=== PATIENT | female | born 1935 | race Two or more races ===

== ENCOUNTER 2025-06-25 00:03 | Inpatient (IN) | payer MEDICARE, OTHER ==
[2025-06-25] VITALS (7 sets, daily range): BP systolic 127–168; BP diastolic 50–70; TEMP 97.1–98.4; O2SAT 96–98
[~2025-06-25] VITALS: Ht 157.5 cm; Wt 73.9 kg
[2025-06-25 01:08] LABS: PLATELET COUNT (AUTO) 563 K/uL (150-450); RED BLOOD CELL COUNT(AUTO) 2.23 MIL/uL (4.0-5.2); RED CELL DISTRIBUTION WIDTH 19.0 % (11.5-15.0); WHITE BLOOD COUNT (AUTO) 9.6 K/uL (4.3-11.0)
[2025-06-25 01:30] LABS: CALCIUM, SERUM 8.5 mg/dL (8.5-10.1); CREATININE 1.4 mg/dL (0.6-1.3); SODIUM SERUM 131.0 mmol/L (136-145); UREA NITROGEN, BLOOD 60.0 mg/dL (7-18)
[2025-06-25 01:34] LABS: INR 1.18 (0.91-1.10)
[2025-06-25 01:48] LABS: ASPARTATE AMINOTRANSFERASE 35.0 U/L (15-37); TOTAL PROTEIN, SERUM 7.2 g/dL (6.4-8.2)
[2025-06-25] MEDS ORDERED: MAGNESIUM HYDROXIDE 30 ML UDC PO PRN (02:00)
[2025-06-25] MEDS ORDERED: Z GUARD REMEDY 4 OZ OINT TP PRN (02:00)
[2025-06-25] MEDS ORDERED: ONDANSETRON HCL/PF 4 MG/2 ML VIAL IVP PRN (02:00)
[2025-06-25] MEDS ORDERED: MAG HYDROX/AL HYDROX/SIMETH 30 ML UDC PO PRN (02:00)
[2025-06-25 02:04] LABS: BASOPHILS % (MANUAL) 0 % (0.0-2.0); EOSINOPHILS % (MANUAL) 0 % (0-4); LYMPHOCYTES % (MANUAL) 6 % (16-48); MONOCYTES % (MANUAL) 18 % (0-11.0); NEUTROPHILS % (MANUAL) 76 (42-76); PLATELET ESTIMATE ADEQUATE
[2025-06-25] MEDS: IV NS 0.9% 1,000 ML BAG IV ONE (02:37)
[2025-06-25] MEDS: hydrALAZINE HCL IV 20 MG VIAL IV PRN (06:56)
[2025-06-25] MEDS: PANTOPRAZOLE 40 MG TABLET.DR PO SCH (09:00)
[2025-06-25] MEDS ORDERED: ACET-868 GT (09:21)
[2025-06-25] MEDS ORDERED: LACT1CAP69 GT (09:21)
[2025-06-25] MEDS ORDERED: IPRA3AMP23 IH (09:21)
[2025-06-25] MEDS ORDERED: MULT-213 GT (09:21)
[2025-06-25] MEDS ORDERED: ASPI-1169 GT (09:21)
[2025-06-25] MEDS ORDERED: LACT-96 GT (09:21)
[2025-06-25] MEDS ORDERED: BISA10SU11 RC (09:21)
[2025-06-25] MEDS ORDERED: APIX2.5T GT (09:21)
[2025-06-25] MEDS ORDERED: LOSA50TA39 GT (09:21)
[2025-06-25] MEDS ORDERED: NA P133E RC (09:21)
[2025-06-25] MEDS ORDERED: HYDR100T27 GT (09:21)
[2025-06-25] MEDS ORDERED: LEVO25TA7 GT (09:21)
[2025-06-25] MEDS ORDERED: METO50TA16 GT (09:21)
[2025-06-25] MEDS ORDERED: DIGO0.12 GT (09:21)
[2025-06-25] MEDS ORDERED: ATOR80TA GT (09:21)
[2025-06-25] MEDS ORDERED: PANT40SU2 GT (09:21)
[2025-06-25] MEDS ORDERED: CLON0.1T GT (09:21)
[2025-06-25] MEDS ORDERED: SODI325T GT (09:21)
[2025-06-25] MEDS ORDERED: DILT30TA14 GT (09:21)
[2025-06-25] MEDS ORDERED: NUTR1PAC14 GT (09:21)
[2025-06-25 10:37] LABS: PLATELET COUNT (AUTO) 511 K/uL (150-450); RED BLOOD CELL COUNT(AUTO) 2.62 MIL/uL (4.0-5.2); RED CELL DISTRIBUTION WIDTH 17.7 % (11.5-15.0); WHITE BLOOD COUNT (AUTO) 10.4 K/uL (4.3-11.0)
[2025-06-25 10:41] LABS: CALCIUM, SERUM 8.3 mg/dL (8.5-10.1); CREATININE 1.5 mg/dL (0.6-1.3); SODIUM SERUM 131.0 mmol/L (136-145); UREA NITROGEN, BLOOD 59.0 mg/dL (7-18)
[2025-06-25] MEDS: THERAHONEY GEL 1.5 OZ TUBE TP SCH (10:52)
[2025-06-25 11:57] LABS: LYMPHOCYTES % (MANUAL) 4 % (16-48); MONOCYTES % (MANUAL) 12 % (0-11.0); NEUTROPHILS % (MANUAL) 84 (42-76)
[2025-06-25 11:58] LABS: PLATELET ESTIMATE INCREASED
[2025-06-25] MEDS ORDERED: JEVITY 1.5 CAL LIQUID 1,000 ML BOTTLE GT PRN (12:00)
[2025-06-25] MEDS: JEVITY 1.2 CAL 1,000 ML BOTTLE GT SCH (15:55)
[2025-06-25] MEDS: IV NS 0.9% 1,000 ML IV PRN (18:20)
[2025-06-26 01:13] VITALS: BP 178/102
[2025-06-26 02:33] VITALS: BP 141/100
[2025-06-26 07:11] LABS: PLATELET COUNT (AUTO) 487 K/uL (150-450); RED BLOOD CELL COUNT(AUTO) 3.21 MIL/uL (4.0-5.2); RED CELL DISTRIBUTION WIDTH 17.0 % (11.5-15.0); WHITE BLOOD COUNT (AUTO) 9.3 K/uL (4.3-11.0)
[2025-06-26 07:32] LABS: LDL 69.0 mg/dL (0-99)
[2025-06-26 07:43] LABS: CALCIUM, SERUM 8.2 mg/dL (8.5-10.1); CREATININE 1.3 mg/dL (0.6-1.3); PHOSPHORUS 3.6 mg/dL (2.5-4.9); SODIUM SERUM 133.0 mmol/L (136-145); UREA NITROGEN, BLOOD 48.0 mg/dL (7-18)
[2025-06-26 08:00] VITALS: BP 142/90; TEMP 98.2; O2SAT 100
[2025-06-26 08:15] LABS: LYMPHOCYTES % (MANUAL) 6 % (16-48); MONOCYTES % (MANUAL) 13 % (0-11.0); NEUTROPHILS % (MANUAL) 81 (42-76)
[2025-06-26 08:16] LABS: PLATELET ESTIMATE INCREASED
[2025-06-26] MEDS ORDERED: SODIUM BICARBONATE 325 MG TABLET GT SCH (09:30)
[2025-06-26] MEDS ORDERED: ASPIRIN 81 MG TAB.CHEW GT SCH (09:30)
[2025-06-26] MEDS: LOSARTAN POTASSIUM 50 MG TABLET GT SCH (10:36)
[2025-06-26] MEDS: DILTIAZEM HCL 30 MG TABLET GT SCH (10:36)
[2025-06-26] MEDS: CLONIDINE HCL 0.1 MG TABLET GT SCH (10:36)
[2025-06-26] MEDS: LACTOBACILLUS RHAMNOSUS GG 1 EACH CAP.SPRINK PO SCH (10:36)
[2025-06-26] MEDS: PROSOURCE / PROSTAT (PYXIS) 30 ML UDC GT SCH (10:37)
[2025-06-26] MEDS: LEVOTHYROXINE SODIUM 25 MCG TABLET GT SCH (10:37)
[2025-06-26] MEDS: METOPROLOL TARTRATE 50 MG TABLET GT SCH (10:38)
[2025-06-26] MEDS: ARGININE/GLUTAMINE/CALCIUM BMB 1 EACH POWD.PACK GT SCH (10:38)
[2025-06-26] MEDS: PANTOPRAZOLE 40 MG/PACK PACK GT SCH (10:39)
[2025-06-26] MEDS: DIGOXIN ELIX UDC 0.25 MG/5 ML UDC GT SCH (13:00)
[2025-06-26 16:00] VITALS: BP 134/79; TEMP 97.9; O2SAT 96
[2025-06-26] MEDS ORDERED: APIXABAN 2.5 MG TABLET GT SCH (17:00)
[2025-06-26 20:00] VITALS: BP 113/98; TEMP 97.3; O2SAT 99
[2025-06-26] MEDS: ATORVASTATIN 40 MG TABLET GT SCH (21:34)
[2025-06-26 21:45] LABS: OCCULT BLOOD STOOL POSITIVE (NEGATIVE)
[2025-06-27 04:00] VITALS: BP 153/75; TEMP 97.5; O2SAT 98
[2025-06-27 06:58] LABS: PLATELET COUNT (AUTO) 478 K/uL (150-450); RED BLOOD CELL COUNT(AUTO) 3.10 MIL/uL (4.0-5.2); RED CELL DISTRIBUTION WIDTH 17.7 % (11.5-15.0); WHITE BLOOD COUNT (AUTO) 12.1 K/uL (4.3-11.0)
[2025-06-27 08:00] VITALS: BP 134/79; TEMP 97.9; O2SAT 96
[2025-06-27 08:02] LABS: CALCIUM, SERUM 8.1 mg/dL (8.5-10.1); CREATININE 1.1 mg/dL (0.6-1.3); SODIUM SERUM 136.0 mmol/L (136-145); UREA NITROGEN, BLOOD 47.0 mg/dL (7-18)
[2025-06-27 08:17] LABS: PHOSPHORUS 3.5 mg/dL (2.5-4.9)
[2025-06-27 09:23] LABS: LYMPHOCYTES % (MANUAL) 4 % (16-48); MONOCYTES % (MANUAL) 15 % (0-11.0); NEUTROPHILS % (MANUAL) 81 (42-76)
[2025-06-27 09:24] LABS: PLATELET ESTIMATE INCREASED
[2025-06-27] MEDS: LEVOTHYROXINE SODIUM 25 MCG TABLET GT SCH (09:26)
[2025-06-27] MEDS: MULTIVIT W/MINERALS 1 TAB TABLET PO SCH (09:26)
[2025-06-27] MEDS: SODIUM BICARBONATE 650 MG TABLET GT SCH (09:27)
[2025-06-27 16:00] VITALS: BP 152/55; TEMP 97.3; O2SAT 99
[2025-06-27 20:00] VITALS: BP 137/65; TEMP 97.3; O2SAT 100
[2025-06-28] VITALS (9 sets, daily range): BP systolic 119–169; BP diastolic 46–78; TEMP 97–98.1; O2SAT 94–99
[2025-06-28 07:07] LABS: PLATELET COUNT (AUTO) 525 K/uL (150-450); RED BLOOD CELL COUNT(AUTO) 3.23 MIL/uL (4.0-5.2); RED CELL DISTRIBUTION WIDTH 17.6 % (11.5-15.0); WHITE BLOOD COUNT (AUTO) 12.0 K/uL (4.3-11.0)
[2025-06-28 07:41] LABS: CALCIUM, SERUM 8.4 mg/dL (8.5-10.1); CREATININE 1.1 mg/dL (0.6-1.3); SODIUM SERUM 136.0 mmol/L (136-145); UREA NITROGEN, BLOOD 47.0 mg/dL (7-18)
[2025-06-28 08:02] LABS: PHOSPHORUS 2.9 mg/dL (2.5-4.9)
[2025-06-28 09:32] LABS: LYMPHOCYTES % (MANUAL) 5 % (16-48); MONOCYTES % (MANUAL) 15 % (0-11.0); NEUTROPHILS % (MANUAL) 80 (42-76); PLATELET ESTIMATE INCREASED
[2025-06-28 11:18] LABS: ABG BASE EXCESS 0.1 mmol/L (-2.0-3.0); ABG OXYGEN SATURATION 98.6 % (94.0-98.0); ABG PCO2 50.9 mmHg (32.0-45.0); ABG PH 7.333 (7.350-7.450); ABG PO2 130.2 mmHg (83.0-108.0); ABG TOTAL HEMOGLOBIN 9.7 G/dL (12.0-16.0); SITE, ABG RIGHT RADIAL
[2025-06-28] MEDS: IPRATROPIUM NEB FS 0.5 MG/2.5 ML AMPUL.NEB NEB SCH (13:01)
[2025-06-28] MEDS: PEG 3350/NA SULF,BICARB,CL/KCL 4,000 ML BOTTLE PO ONE (14:45)
[2025-06-28] MEDS: FUROSEMIDE 100 MG/10 ML VIAL IV SCH (16:33)
[2025-06-28 17:00] LABS: IRON, SERUM 13.0 ug/dl (50-175)
[2025-06-28] MEDS ORDERED: FUROSEMIDE 40 MG/4 ML VIAL IV SCH (20:00)
[2025-06-29] VITALS (14 sets, daily range): BP systolic 100–167; BP diastolic 50–80; TEMP 97.1–98; O2SAT 95–100
[2025-06-29 07:03] LABS: PLATELET COUNT (AUTO) 476 K/uL (150-450); RED BLOOD CELL COUNT(AUTO) 3.13 MIL/uL (4.0-5.2); RED CELL DISTRIBUTION WIDTH 18.5 % (11.5-15.0); WHITE BLOOD COUNT (AUTO) 11.5 K/uL (4.3-11.0)
[2025-06-29 07:08] LABS: CALCIUM, SERUM 8.3 mg/dL (8.5-10.1); CREATININE 1.0 mg/dL (0.6-1.3); SODIUM SERUM 139.0 mmol/L (136-145); UREA NITROGEN, BLOOD 49.0 mg/dL (7-18)
[2025-06-29 07:13] LABS: PHOSPHORUS 2.4 mg/dL (2.5-4.9)
[2025-06-29 09:36] LABS: LYMPHOCYTES % (MANUAL) 3 % (16-48); MONOCYTES % (MANUAL) 15 % (0-11.0); NEUTROPHILS % (MANUAL) 82 (42-76); PLATELET ESTIMATE INCREASED
[2025-06-29] MEDS: SOD FERRIC GLUC 125 MG in IV NS 0.9% 100 ML IV SCH (14:51)
[2025-06-29] MEDS: K PHOS NEUTRAL 250 MG TABLET PO ONE (16:12)
[2025-06-29] MEDS: ACETAMINOPHEN 325 MG TABLET PO PRN (18:32)
[2025-06-30] VITALS (13 sets, daily range): BP systolic 124–182; BP diastolic 50–124; TEMP 97.2–98.7; O2SAT 94–99
[2025-06-30] MEDS: IV D5/ 0.9% NACL 1,000 ML IV ONE (06:57)
[2025-06-30] MEDS ORDERED: DOSING PER PHARMACY-CEFEPIME IVPB XX PRN (10:00)
[2025-06-30] MEDS: CEFEPIME 2 GM in IV D5W 100 ML IV SCH (11:28)
[2025-06-30] MEDS ORDERED: ANESTHESIA TRAY IN PYXIS 1 EA TRAY MC ONE (13:55)
[2025-07-01] VITALS (16 sets, daily range): BP systolic 97–180; BP diastolic 43–88; TEMP 97.3–97.9; O2SAT 96–99
[2025-07-01 07:12] LABS: PLATELET COUNT (AUTO) 460 K/uL (150-450); RED BLOOD CELL COUNT(AUTO) 3.31 MIL/uL (4.0-5.2); RED CELL DISTRIBUTION WIDTH 17.7 % (11.5-15.0); WHITE BLOOD COUNT (AUTO) 12.5 K/uL (4.3-11.0)
[2025-07-01 07:38] LABS: BASOPHILS % (MANUAL) 0 % (0.0-2.0); EOSINOPHILS % (MANUAL) 0 % (0-4); LYMPHOCYTES % (MANUAL) 6 % (16-48); MONOCYTES % (MANUAL) 16 % (0-11.0); NEUTROPHILS % (MANUAL) 78 (42-76); PLATELET ESTIMATE ADEQUATE
[2025-07-01 07:42] LABS: CALCIUM, SERUM 8.0 mg/dL (8.5-10.1); CREATININE 0.9 mg/dL (0.6-1.3); PHOSPHORUS 2.6 mg/dL (2.5-4.9); SODIUM SERUM 140.0 mmol/L (136-145); UREA NITROGEN, BLOOD 32.0 mg/dL (7-18)
[2025-07-01] MEDS: POTASSIUM CHLORIDE 20 MEQ POWDER PACKET GT SCH (11:42)
[2025-07-01] MEDS: MAGNESIUM OXIDE 400 MG TABLET GT ONE (11:43)
[2025-07-01 17:22] LABS: WBC, BODY FLUID 931 /cu. mm. (0-200)
[2025-07-01 17:35] LABS: TOTAL VOLUME,BODY FLUID 600 mL
[2025-07-01 17:40] LABS: APPEARANCE,SPUN,BODY FLUID CLEAR (CLEAR)
[2025-07-01 18:00] LABS: PROTEIN, BODY FLUID 2.6 G/DL
[2025-07-01 19:00] LABS: MACROPHAGES, BODY FLUID 15
[2025-07-02] VITALS (11 sets, daily range): BP systolic 105–135; BP diastolic 40–56; TEMP 97.3–97.8; O2SAT 95–99
[2025-07-02 07:19] LABS: PLATELET COUNT (AUTO) 398 K/uL (150-450); RED BLOOD CELL COUNT(AUTO) 3.09 MIL/uL (4.0-5.2); RED CELL DISTRIBUTION WIDTH 18.0 % (11.5-15.0); WHITE BLOOD COUNT (AUTO) 11.9 K/uL (4.3-11.0)
[2025-07-02 08:02] LABS: CALCIUM, SERUM 8.0 mg/dL (8.5-10.1); CREATININE 1.2 mg/dL (0.6-1.3); SODIUM SERUM 141.0 mmol/L (136-145); UREA NITROGEN, BLOOD 45.0 mg/dL (7-18)
[2025-07-02 08:35] LABS: PLATELET ESTIMATE ADEQUATE
[2025-07-02 08:36] LABS: LYMPHOCYTES % (MANUAL) 5 % (16-48); MONOCYTES % (MANUAL) 19 % (0-11.0); NEUTROPHILS % (MANUAL) 76 (42-76)
[2025-07-02] MEDS ORDERED: CEFE2FRO IV (10:00)
[2025-07-02] MEDS ORDERED: SOD62.5V IV (10:00)
[2025-07-02] MEDS: MAGNESIUM OXIDE 400 MG TABLET PO ONE (12:27)
[2025-07-02] MEDS ORDERED: FERR325T28 GT (14:23)
== END 2025-07-02 15:20 | DRG 981 ==
LOC: ER 00:05 → EDBD 00:05 → TELE1 03:10 → MEDSG1 09:45 → TELE1 06-28 11:52
PROVIDERS: ADMIT Nurse Practitioner Acute Care; ATTEND Nurse Practitioner Family
PROC: 30233N1 Transfusion of Nonautologous Red Blood Cells into Peripheral Vein, Percutaneous Approach (ICD-10-PCS; principal; 2025-06-25)
PROC: 0KBN0ZZ Excision of Right Hip Muscle, Open Approach (ICD-10-PCS; 2025-06-30)
PROC: 0KBP0ZZ Excision of Left Hip Muscle, Open Approach (ICD-10-PCS; 2025-06-30)
PROC: 0DJD8ZZ Inspection of Lower Intestinal Tract, Via Natural or Artificial Opening Endoscopic (ICD-10-PCS; 2025-06-30)
PROC: 0W9B3ZZ Drainage of Left Pleural Cavity, Percutaneous Approach (ICD-10-PCS; 2025-07-01)
DX: D64.9 Anemia, unspecified (principal); L89.154 Pressure ulcer of sacral region, stage 4; E87.1 Hypo-osmolality and hyponatremia; I70.268 Atherosclerosis of native arteries of extremities with gangrene, other extremity; E44.0 Moderate protein-calorie malnutrition; L97.419 Non-pressure chronic ulcer of right heel and midfoot with unspecified severity; I13.0 Hypertensive heart and chronic kidney disease with heart failure and stage 1 through stage 4 chronic kidney disease, or unspecified chronic kidney disease; I50.32 Chronic diastolic (congestive) heart failure; N17.9 Acute kidney failure, unspecified; E87.29 Other acidosis; E78.5 Hyperlipidemia, unspecified; I69.320 Aphasia following cerebral infarction; I70.201 Unspecified atherosclerosis of native arteries of extremities, right leg; L98.494 Non-pressure chronic ulcer of skin of other sites with necrosis of bone; K64.8 Other hemorrhoids; I48.91 Unspecified atrial fibrillation; R13.10 Dysphagia, unspecified; I27.20 Pulmonary hypertension, unspecified; F20.9 Schizophrenia, unspecified; I69.391 Dysphagia following cerebral infarction; Z93.1 Gastrostomy status; Z88.1 Allergy status to other antibiotic agents; Z87.891 Personal history of nicotine dependence; Z79.01 Long term (current) use of anticoagulants; N18.9 Chronic kidney disease, unspecified; F03.C0 Unspecified dementia, severe, without behavioral disturbance, psychotic disturbance, mood disturbance, and anxiety; E88.09 Other disorders of plasma-protein metabolism, not elsewhere classified; E87.5 Hyperkalemia; E86.0 Dehydration; E03.9 Hypothyroidism, unspecified; E87.6 Hypokalemia; E66.9 Obesity, unspecified; Z68.29 Body mass index [BMI] 29.0-29.9, adult; E61.1 Iron deficiency; S80.211A Abrasion, right knee, initial encounter; X58.XXXA Exposure to other specified factors, initial encounter; Y92.9 Unspecified place or not applicable; Z79.890 Hormone replacement therapy; Z79.51 Long term (current) use of inhaled steroids; Z79.899 Other long term (current) drug therapy; Z79.82 Long term (current) use of aspirin; F09 Unspecified mental disorder due to known physiological condition; E53.8 Deficiency of other specified B group vitamins; F41.9 Anxiety disorder, unspecified; K56.41 Fecal impaction
CPT/HCPCS: 36415; 71045-TC; 71250-TC; 80048-TC; 80061-TC; 80076-TC; 82272-TC; 82728-TC; 82803-TC; 82962-TC; 83540-TC; 83735-TC; 84100-TC; 84439-TC; 84443-TC; 84550-TC; 85027-TC; 85730-TC; 86850-TC; 87070-TC; 87075-TC; 87081-TC; 87102-TC; 89051-TC; 92526; 92611; 93307-TC; 94760-TC; 94799-TC; A4223; A6213; A6253; A6403; G0378; J0360; J0692; J1938; J2704; J2916; J3490; J7030; J7040; J7042; J7050; J7060; P9016